=== PATIENT | female | born 1955 | race Caucasian/White ===

== ENCOUNTER 2017-10-12 14:53 | Inpatient (IN) | payer OTHER ==
[2017-10-12 15:16] VITALS: BMI 30.9
[2017-10-12] MEDS ORDERED: ISOVUE-370 76%-LOCM 1 ML ONE (15:47)
[2017-10-12] MEDS ORDERED: Acetaminophen 325 MG TAB PO PRN ×2 (16:10→16:12)
[2017-10-12] MEDS ORDERED: Bisacodyl 5 MG TAB PO PRN (16:12)
[2017-10-12] MEDS ORDERED: Ondansetron HCl/PF 4 MG/2 ML Vial IVP PRN (16:12)
[2017-10-12] MEDS ORDERED: Ondansetron ODT 4 MG TAB PO PRN (16:12)
[2017-10-12] MEDS ORDERED: Calcium Carbonate 500 MG ChewTAB PO PRN (16:12)
[2017-10-12] MEDS ORDERED: Bisacodyl 10 MG SUPP PR PRN (16:12)
[2017-10-12] MEDS ORDERED: Sodium Chloride 0.9% 1,000 ML IV SCH (16:15)
[2017-10-12] MEDS ORDERED: Morphine 4 MG/ML VIAL SLOW IVP PRN (16:30)
[2017-10-12 16:46] LABS: Bilirubin Negative (Negative); Blood, Urine Large (Negative); Glucose, Urine (Dipstick) Negative (Negative); Ketone, Urine Negative (Negative); Nitrite Positive (Negative); Protein, Urine (Dipstick) 100 mg/dL (Neg-Trace)
[2017-10-12 16:47] LABS: Bacteria/HPF 4+ HPF (None Seen); Hyaline Casts/LPF 0-3 HYALINE CAST LPF (0-3 Hyaline); Squamous Epithelial 0-3 HPF (0-3)
[2017-10-12] MEDS: Lactated Ringer's 1,000 ML IV SCH ×2 (16:49→23:47)
[2017-10-12 16:53] LABS: Hematocrit 44.6 % (36.0-47.0); Mean Platelet Volume 8.1 fL (7.4-10.4); Red Blood Cell (RBC) Count 4.71 mill/uL (4.20-5.40); White Blood Cell (WBC) Count 14.2 thou/uL (4.8-10.8)
[2017-10-12 17:07] LABS: Yeast-All Forms None Seen HPF (None Seen)
[2017-10-12 17:09] LABS: ALT (SGPT) 25 U/L (8-55); AST (SGOT) 18 U/L (5-34); Alkaline Phosphatase 72 U/L (40-150); Anion Gap 11 mmol/L (10-20); BUN (Urea Nitrogen) 11 mg/dL (9.8-20.1); Bilirubin, Total 0.5 mg/dL (0.2-1.2); Calc. Creatinine Clearance 103 mL/min (70-130); Calcium 9.4 mg/dL (7.8-10.44); Carbon Dioxide 26 mmol/L (22-29); Chloride 105 mmol/L (98-107); Estimated GFR-MDRD 79
[2017-10-12 17:22] LABS: Neutrophil 85 % (42-75)
[2017-10-12] MEDS ORDERED: Ibuprofen 600 MG TAB PO PRN (19:19)
[2017-10-12] MEDS: Lisinopril 5 MG TAB PO SCH (20:12)
[2017-10-12] MEDS: Multivit, Therapeutic 1 TAB PO SCH (20:12)
[2017-10-12] MEDS: Saccharomyces boulardii 250 MG CAP PO SCH (20:12)
[2017-10-12] MEDS: Atorvastatin Calcium 10 MG TAB PO SCH ×2 (20:12→20:14)
[2017-10-12] MEDS: Famotidine 20 MG TAB PO SCH (20:12)
[2017-10-12] MEDS: Nitrofurantoin Monohyd/M-Cryst 100 MG CAP PO SCH (20:23)
--- NOTE | 2017-10-12 20:31 | CT ---
CT ABDOMEN AND PELVIS WITH IV CONTRAST: History: Bilateral flank pain. FINDINGS: The lung bases are clear. The gallbladder is surgically absent. There is subtle stranding in the ret roperitoneal fat surrounding the renal collecting systems and upper ureters with subtle circumferent ial wall thickening. Urinary bladder is incompletely distended and is also surrounded by subtle infl ammatory fat stranding. No free fluid or free air are apparent. There are degenerative changes of th e lumbar spine. IMPRESSION: Subtle inflamed appearance of the ureters and urinary bladder without evidence of obstruction. Clini carissa correlation regarding other signs and symptoms of chronic urinary tract infection is required. POS: DERRELL
[2017-10-12] MEDS ORDERED: FLU VACC QS2017-18 36 mo. & older 0.5 ML SYRINGE IM ONE (21:00)
--- NOTE | 2017-10-12 21:50 | HP-2 ---
ATTENDING PHYSICIAN: Dr. Gabi Mccarty. RESIDENT: Dr. Chuck Gil, PGY-1. CODE STATUS: Full. HISTORIAN: The patient. SPECIALISTS: For GI, sees Dr. Grimaldo and has seen Dr. Soni with ID. CHIEF COMPLAINT: Bladder pain/diarrhea. HISTORY OF PRESENT ILLNESS: This is a 61-year-old female who was transferred to the hospital from [facility] from Dr. Grimaldo with intractable diarrhea. She also reports having bladder pain since at, pain with urination, although says it feels like her bladder is going to fall out when she pees. She denies any blood in her urine, but also reports starting Thursday that it felt like her kid neys began to hurt so bad. She has been having back pain that has been constant since Thursday and has spikes of pain that go up till 10. The constant pain she rates around 3-4. Right now, her pain is at 6. She reports having nausea with the pain. No fevers, no chills. She reported taking Lety on Thursday and continued to take, but reports that this has not helped at all. History was review ed with this patient, she has been getting treated for C. diff since November. C. diff was brought o n by being treated for a bout of diverticulitis. She recently finished a bout of Dificid on Thursday. She said this did not help with the overall leg pain and abdominal pain with her diarrhea, but did help a little bit with the diarrhea. 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 She said that helped the diarrhea for about 10 days after, but since has come back. She said usually w ith her diarrhea, she says the vancomycin usually helped for the pain. For about 10 days after fini shing treatment with diarrhea, she reports having 4-5 loose stools. The last few days, reports havi ng bright red blood in the toilet paper and in the toilet. She denies a little bit of decreased coleman etite with the diarrhea and abdominal pain. She recently went to see Dr. Dillan LEACH today who sent he r over to us. REVIEW OF SYSTEMS: All review of systems unless noted in the HPI are otherwise negative at this aurea e. PAST MEDICAL HISTORY: GERD, hypertension, hypercholesterolemia, ovarian cyst, desmoid tumor behind the right breast. PAST SURGICAL HISTORY: A colonoscopy that showed diverticula, cholecystectomy in 2012, tubal ligati on, , breast surgery for the desmoid tumor in 2009. She has had ovarian cystectomy bilater ally and hysterectomy. ALLERGIES: No known drug allergies. MEDICATIONS: She takes lisinopril 5 mg and simvastatin 20 mg. FAMILY HISTORY: Mom and dad have hypertension. SOCIAL HISTORY: She is currently nonsmoker, but smoked 20 years ago socially. Alcohol use is occas ional and no illicit drug use. PHYSICAL EXAMINATION: VITAL SIGNS: Blood pressure is 129/80, pulse is 69, respiration is 18, temperature is 98.1, pulse o x 96% on room air and current weight is 179 pounds. GENERAL: She is alert and oriented x3. Well-developed, obese and appropriately interactive. EYES: Conjunctivae within normal limit. PERRLA. ENT: Oropharynx within normal limit. Moist mucous membranes. NECK: Supple. No lymphadenopathy, no thyromegaly, no bruits. CARDIOVASCULAR: Regular rate and rhythm. No murmurs, no gallops. Radial pulses and pedal pulses p alpated bilaterally. RESPIRATORY: Normal breathing, however, there were no retractions. Lungs are clear to auscultation bilaterally. No wheezes or crackles. SKIN: Warm and dry. No lesions. No bruises, no rashes noted. ABDOMEN: Soft. There is severe pain to palpation in the right lower and left lower quadrants and a lso in the pelvic area. There are no masses or distention. Bowel sounds are in all four quadrants. There is severe CVA tenderness on the left side. No CVA tenderness on the right side. MUSCULOSKELETAL: Structure within normal limits. Tone within normal limits. Full range of motion. NEUROLOGIC: No focal neuro deficits. PSYCHIATRIC: Appropriate. LABORATORY AND IMAGING DATA: No labs were done currently at this time. No imaging done yet. ASSESSMENT AND PLAN: 1. Dysuria with cerebrovascular accident tenderness suspected infection. We will get a UA with the urine culture. We will get blood cultures as well to check for infection. We will get a CT abdome n and pelvis as she has severe cerebrovascular accident tenderness looking for possible kidney stone and look for hydronephrosis of the kidneys and also to assess any structure abnormalities in the pe lvis as she was having severe pelvic pain. We will check a CBC and CMP. We will possibly depend on what the urine culture, start on antibiotics and maybe consider consulting ID as the antibiotics henrietta chen was on for diverticulitis caused her Clostridium difficile, so she is a little bit scared about an tibiotic treatment. 2. Intractable diarrhea with a history of Clostridium difficile. We will get stool cultures. We w ill get Campylobacter studies. We will get Clostridium difficile toxin. We will get checked for Es cherichia coli with history of diarrhea and likely electrolyte loss, was started on lactated Ringer' s at a rate of 125 for fluid loss. We will give Zofran for nausea. We will consult GI as she was s ent from the GI office. Dr. Babb will be consulted. We will currently wait on some of her labs in such to get back, but likely will start her on oral vancomycin and IV Flagyl as she does not tolera te p.o. Flagyl. We will put her on a clear liquid diet as I was sent over on orders from the GI doc tors and we will continue the diet until we get recommendations from GI. 3. Hypertension. We will start home meds. 4. Hyperlipidemia. Continue home medications.
--- NOTE | 2017-10-12 22:04 | HP ---
DATE OF ADMISSION: 10/12/2017 ATTENDING: Gabi Mccarty D.O. RESIDENT: Chuck Gil M.D. Dr. Gil's history and physical reviewed and case discussed. Pertinent portions of the history and physical were repeated by myself. I agree with the assessment and plan with the following addendum: Ms. Escobar is a pleasant 61-year-old female with the past medical history of diverticulitis and recurrent C. diff who was admitted to our service on request of Dr. Grimaldo with Gastroenterology for concerns for recurrent C. diff. She complains of worsening diarrhea and abdominal pain as well as blood in her stools in the past 2 to 3 days. She has a several month history of C. diff that began after prior treatment for diverticulitis that has unfortunately been recurrent despite multiple treatments including a fecal transplant. Today she presents with diffuse abdominal pain and bright red blood in stools which are loose and foul smelling. She is afebrile and vital signs are stable. We will do a CT scan of abdomen and pelvis with and without contrast to evaluate for complications including toxic megacolon. She also complains of severe bladder pain. We will check an UA and urine culture to evaluate for a possible urinary tract infection contributing to her symptoms. She is status post total hysterectomy, so this excludes gynecologic issues from a differential. On exam , she is diffusely tender, significantly more so in bilateral lower quadrants. We will obtain C. diff studies as well as other stool studies, CT scan as mentioned above, and GI consultation. Dr. Babb is aware. [facility]ITALAdam
--- NOTE | 2017-10-13 00:07 | CON ---
DATE OF CONSULTATION: 10/12/2017 CHIEF COMPLAINT: Abdominal pain. HISTORY OF PRESENT ILLNESS: Ms. Escobar is a 61-year-old woman who has been treated by Dr. Grimaldo for r ecurrent C. diff colitis. She was first diagnosed with C. diff around a year ago and was treated wi metronidazole in an outside facility. She subsequently had relapses and was treated with vancomy monica for more times. Ultimately, she underwent colonoscopy with fecal transplant by Dr. Grimaldo in 2016. She did well for the next several weeks, but then had relapse of diarrhea. She was travellin and took vancomycin which she had leftover intermittently while she was traveling, but did not andres e a full course of the medication. She came in to see Dr. Grimaldo with worsening bloody diarrhea up t o 5 or 6 times per day. She was then started on Dificid. Since starting Dificid her diarrhea and b leeding have pretty much resolved; however, over the last several days she has had progressive worse mary of lower abdominal pain and lower back pain. The pain is now her primary symptom as the diarrh ea actually improved with the Dificid. She has not had nausea or vomiting. She does feel some bloa ting or distention in the lower abdomen. When she came to the office today to see Dr. Grimaldo for fol lowup, she was feeling poorly and very weak with increased abdominal pain. She has had formed small stools, but due to her weakness and worsening pain, she was admitted for further care. Her abdomin al pain is continuous. PAST MEDICAL HISTORY: Hypertension, hyperlipidemia, recurrent Clostridium difficile infection. PAST SURGICAL HISTORY: Cholecystectomy, tubal ligation, , breast surgery, hysterectomy, cy st removed from the ovary, colonoscopy with fecal transplant. FAMILY HISTORY: Negative for GI malignancy. SOCIAL HISTORY: Occasional alcohol, no drugs. No smoking. ALLERGIES: No known drug allergies. MEDICATIONS: Prior to admission VSL #3, Levsin, lisinopril, Estratest. She recently finished a cou rse of Dificid. REVIEW OF SYSTEMS: Negative x10 systems reviewed except as stated in the history of present illness . PHYSICAL EXAMINATION: VITAL SIGNS: Temperature 98.1, pulse 69, blood pressure 138/85. GENERAL: She is in no acute distress. She is alert and oriented x3. HEENT: Eyes have no scleral icterus. Oropharynx is clear, without lesions. NECK: No cervical or supraclavicular lymphadenopathy. LUNGS: Clear to auscultation bilaterally. HEART: Regular rate and rhythm without murmur. ABDOMEN: Soft without guarding, but she does have some tenderness in the lower abdomen. She is non distended, bowel sounds are active. EXTREMITIES: No lower extremity edema. LABORATORY DATA: White blood cell count 14.2, hemoglobin 14.6, platelets 266, creatinine 0.75, bili scott 0.5, AST 18, ALT 25, alkaline phosphatase 72, albumin 4.0, leukocyte esterase in the urinalysi s is large, nitrite positive, urine white blood cells greater than 50, urine red blood cells 7 to 10 . IMPRESSION: 1. Urinary tract infection. She has lower abdominal pain and lower back pain associated with this. CT scan shows some inflammatory changes around the ureters and thickening of the urinary bladder. 2. Recurrent Clostridium difficile colitis. She unfortunately had a relapse of Clostridium diffici le confirmed by stool studies treated a couple of weeks ago with Dificid. She completed this treatm ent 3 days ago. Her GI symptoms have improved; however, her abdominal pain is her primary symptom n ow. It appears that her current pain symptoms are more likely due to the urinary tract infection ra ther than ongoing recurrent Clostridium difficile now. Her stool quality is improved. Unfortunatel y, there is a high likelihood that her Clostridium difficile will flare again now that she will requ linsey antibiotics for the urinary tract infection. RECOMMENDATIONS: 1. Continue oral probiotics. 2. Start IV antibiotics for the urinary tract infection per primary service. 3. Check stool C. diff now. If the toxin is negative, then I would hold off treatment for the C. d iff and she starts developing diarrhea again. I would have a low threshold for restarting a course of Dificid or vancomycin. 4. Repeat fecal transplant is being considered.
[2017-10-13] MEDS: Simethicone Chewable 80 MG TAB PO PRN ×2 (00:51→16:30)
[2017-10-13 05:02] LABS: Band 6 % (5-11); Hematocrit 41.9 % (36.0-47.0); Mean Platelet Volume 8.4 fL (7.4-10.4); Neutrophil 76 % (42-75); Red Blood Cell (RBC) Count 4.46 mill/uL (4.20-5.40); White Blood Cell (WBC) Count 14.5 thou/uL (4.8-10.8)
[2017-10-13 05:13] LABS: ALT (SGPT) 24 U/L (8-55); AST (SGOT) 18 U/L (5-34); Alkaline Phosphatase 65 U/L (40-150); Anion Gap 12 mmol/L (10-20); BUN (Urea Nitrogen) 8 mg/dL (9.8-20.1); Bilirubin, Total 0.7 mg/dL (0.2-1.2); Calc. Creatinine Clearance 115 mL/min (70-130); Calcium 8.9 mg/dL (7.8-10.44); Carbon Dioxide 24 mmol/L (22-29); Chloride 107 mmol/L (98-107); Estimated GFR-MDRD 90; Globulin 2.7 g/dL (2.4-3.5); Protein, Total 6.2 g/dL (6.0-8.3)
[2017-10-13] MEDS: Lactated Ringer's 1,000 ML IV SCH ×2 (08:33→15:21)
[2017-10-13] MEDS: Famotidine 20 MG TAB PO SCH ×2 (08:33→21:31)
[2017-10-13] MEDS: Saccharomyces boulardii 250 MG CAP PO SCH ×2 (08:34→21:31)
[2017-10-13] MEDS: Nitrofurantoin Monohyd/M-Cryst 100 MG CAP PO SCH (08:35)
[2017-10-13] MEDS: Floranex Packet PO SCH (08:45)
[2017-10-13] MEDS ORDERED: traMADol HCl 50 MG TAB PO PRN (08:53)
--- NOTE | 2017-10-13 08:56 | PDOC.FM ---
- Subjective Subjective: Pt denies any fevers or chills overnight. Pt reports pain a little better but still severe. still reports having back pain. Says urinary sx's have improved. She did not take the morphine last night because after talking with Dr. Babb they decided not to take any medication that might affect the motility of the bowels. She took some tylenol but did not help much with pain. Just observing pt she was upright in chair and with movement would tense up in the abdomen area. - Objective Vital Signs & Weight: Vital Signs (12 hours) Temp Pulse Resp BP Pulse Ox 10/13/17 07:27 98.2 F 82 22 H 123/78 96 10/13/17 04:00 98.1 F 79 20 113/71 98 10/12/17 23:58 98.3 F 74 18 117/69 96 Weight Weight 81.647 kg I&O: 10/12/17 10/13/17 10/14/17 06:59 06:59 06:59 Intake Total 2250 Output Total 50 Balance 2200 Result Diagrams: 10/13/17 04:10 10/13/17 04:10 Additional Labs: Laboratory Tests 10/12/17 16:05 Urine Nitrite Positive H Ur Leukocyte Esterase Large H Urine RBC 7-10 H Urine WBC Greater Than 50-TNTC H Ur Squamous Epith Cells 0-3 Urine Bacteria 4+ H Radiology Reviewed by me: Yes Radiology: CT Ab/Pelvis: subtle inflamed appearance of uterus and urinary bladder w/o evidence of obstruction. <Chuck Gil - Last Filed: 10/13/17 08:54> - Objective Vital Signs & Weight: Vital Signs (12 hours) Temp Pulse Resp BP Pulse Ox 10/13/17 07:27 98.2 F 82 22 H 123/78 96 10/13/17 04:00 98.1 F 79 20 113/71 98 10/12/17 23:58 98.3 F 74 18 117/69 96 Weight Weight 81.647 kg I&O: 10/12/17 10/13/17 10/14/17 06:59 06:59 06:59 Intake Total 2250 Output Total 50 Balance 2200 Result Diagrams: 10/13/17 04:10 10/13/17 04:10 <Saul Toscano - Last Filed: 10/13/17 11:50> Phys Exam - Physical Examination HEENT: moist MMs, oral pharynx no lesions Neck: no nodes, no JVD, supple Respiratory: no wheezing, no rales, no rhonchi, clear to auscultation bilateral Cardiovascular: RRR, no significant murmur, no rub Gastrointestinal: soft, no distention, positive bowel sounds Severe tenderness to palpation in Lower Quadrants Pelvic pain on palpation. Still has Left sided CVA tenderness Neurological: non-focal, normal sensation Lymphatic: no nodes Psychiatric: normal affect, A&O x 3 Skin: no rash, normal turgor <Chuck Gil - Last Filed: 10/13/17 08:54> Dx/Plan (1) Cystitis Code(s): N30.90 - CYSTITIS, UNSPECIFIED WITHOUT HEMATURIA Status: Acute Plan: vs suspected pyelonephritis. -No fevers -WBC count elevated. U/A shows sign of UTI. Urine Cx- E. coli, awaiting sensitivities -Currently on Nitrofurantonin. -Will await sensitivities. -Will need stronger IV abx. Will want to make sure risk for c. diff is low. (2) Hx of Clostridium difficile infection Code(s): Z86.19 - PERSONAL HISTORY OF OTHER INFECTIOUS AND PARASITIC DISEASES Status: Acute Plan: -still awaiting stool collection for stool cultures -Reported having some diarrhea. No loose stools overnight. -Will await results and tx as needed Dr. Babb- GI consulted. Will follow recommendations at this time. (3) HTN (hypertension) Code(s): I10 - ESSENTIAL (PRIMARY) HYPERTENSION Status: Acute Plan: continue home meds (4) HLD (hyperlipidemia) Code(s): E78.5 - HYPERLIPIDEMIA, UNSPECIFIED Status: Acute Plan: continue home meds (5) GERD (gastroesophageal reflux disease) Code(s): K21.9 - GASTRO-ESOPHAGEAL REFLUX DISEASE WITHOUT ESOPHAGITIS Status: Acute Plan: Tums PRN -Give famotidine for ppx <Chuck Gil - Last Filed: 10/13/17 08:54> Attending Addendum - Attending Addendum I personally evaluated the patient and discussed the management with Dr. Gil. I agree with the History, Examination, Assessment and Plan documented above with any addition or exceptions noted below. Patient admitted yesterday with concern for recurrence of CDiff infection. However, at current time, it seems her pain complaints may be more related to cystitis with hematuria with possible ascending infection. No systemic signs of pyelonephritis. We are changing her to IV abx that will be better suited for her UTI while minimizing risk for recurrence of Cdiff. We will start Gentamicin today. Awaiting stool studies to ensure no recurrence. GI on board and appreciate their assistance with her longstanding Cdiff infection. Witholding Vanc/Flagyl until we know if she has an active recurrence of Cdiff. Hopefully, Gent will not flare her infection. <Saul Toscano R - Last Filed: 10/13/17 11:50>
[2017-10-13] MEDS ORDERED: Lisinopril 10 MG TAB PO SCH (09:00)
[2017-10-13] MEDS: traMADol HCl 50 MG TAB PO PRN (09:13)
[2017-10-13] MEDS ORDERED: Ketorolac Tromethamine 30 MG/ML VIAL IVP PRN (10:07)
[2017-10-13] MEDS ORDERED: Gentamicin 80 MG/2 ML VIAL IVPB SCH (10:15)
[2017-10-13] MEDS ORDERED: Gentamicin Sulfate 120 MG in Premix Bag 1 BAG IVPB SCH (10:45)
[2017-10-13] MEDS: Phenazopyridine HCl 97.5 MG TABLET PO SCH ×2 (11:38→16:29)
--- NOTE | 2017-10-13 19:04 | PRG ---
DATE OF SERVICE: 10/13/2017 SUBJECTIVE: She still has pressure in the lower abdomen and lower back pain. This is improving tod ay. No diarrhea today. OBJECTIVE: VITAL SIGNS: Temperature is 97.9, pulse 59, and blood pressure 126/77. GENERAL: She is in no acute distress, alert and oriented x3. HEENT: Eyes have no scleral icterus. LUNGS: Clear to auscultation bilaterally. HEART: Regular rate and rhythm. ABDOMEN: Soft, nontender, nondistended. Bowel sounds are present. EXTREMITIES: No lower extremity edema. LABORATORY DATA: White blood cell count is 14.5. C. diff antigen and toxin were negative on 2016 today. Urine culture grew E. coli. IMPRESSION: 1. Urinary tract infection with CT scan showing thickening of the bladder and ureters. She has bee n started on IV antibiotics. 2. Recurrent Clostridium difficile and colitis, status post fecal transplant a few months ago. She does not have recurrent C. diff at this time; however, certainly she is going to be at high risk fo r recurrence after she has been back on antibiotics for her current urinary tract infection. RECOMMENDATIONS: 1. If she starts having diarrhea again, then would empirically treat her with a 14-day course of va ncomycin. 2. Continue probiotics while she is on antibiotics now and thereafter. 3. If she does develop recurrent C. diff then, her son has been tested for the appropriate pathogen s and as a potential donor for fecal transplant if this becomes necessary. 4. I will sign off for now. Please call if GI can be of assistance. Please call if she develops s igns of recurrent Clostridium difficile.
[2017-10-13] MEDS: Multivit, Therapeutic 1 TAB PO SCH (21:31)
[2017-10-13] MEDS: Lisinopril 5 MG TAB PO SCH (21:32)
[2017-10-13] MEDS: Atorvastatin Calcium 10 MG TAB PO SCH (21:32)
[2017-10-14] MEDS: Lactated Ringer's 1,000 ML IV SCH ×2 (02:02→07:43)
[2017-10-14 07:16] LABS: #Eosinphils 0.1 thou/uL (0.0-0.7); #Lymphocytes 1.3 thou/uL (1.20-3.40); #Monocytes 0.6 thou/uL (0.11-0.59); %Basophils 0.7 % (0.0-1.0); %Eosinophils 1.8 % (0.0-10.0); %Lymphocytes 18.1 % (21.0-51.0); %Monocytes 8.9 % (0.0-10.0); Hematocrit 41.2 % (36.0-47.0); Mean Platelet Volume 8.2 fL (7.4-10.4); Red Blood Cell (RBC) Count 4.37 mill/uL (4.20-5.40); White Blood Cell (WBC) Count 7.1 thou/uL (4.8-10.8)
[2017-10-14] MEDS: Famotidine 20 MG TAB PO SCH (07:44)
[2017-10-14] MEDS: Saccharomyces boulardii 250 MG CAP PO SCH (07:44)
[2017-10-14] MEDS: Floranex Packet PO SCH (07:45)
[2017-10-14] MEDS: Phenazopyridine HCl 97.5 MG TABLET PO SCH (07:45)
[2017-10-14] MEDS: traMADol HCl 50 MG TAB PO PRN (07:49)
--- NOTE | 2017-10-14 07:50 | PDOC.FM ---
- Subjective Subjective: Pt doing much better this morning. Says pain is much improved. No pain in her back. Still reports pelvic pain. Reports having normal solid stools. Pt says she is ready to go home today. - Objective Vital Signs & Weight: Vital Signs (12 hours) Temp Pulse Resp BP Pulse Ox 10/13/17 21:32 71 158/87 H 10/13/17 20:00 97.8 F 68 20 97 Weight Admit Weight 81.647 kg Weight 81.647 kg I&O: 10/13/17 10/14/17 10/15/17 06:59 06:59 06:59 Intake Total 2250 4100 Output Total 50 Balance 2200 4100 Result Diagrams: 10/14/17 07:00 10/13/17 04:10 Radiology Reviewed by me: Yes (No new imaging to review this morning) <Chuck Gil - Last Filed: 10/14/17 07:48> - Objective Vital Signs & Weight: Vital Signs (12 hours) Temp Pulse Resp BP Pulse Ox 10/14/17 08:45 98.1 F 64 12 135/79 96 Weight Admit Weight 81.647 kg Weight 81.647 kg I&O: 10/13/17 10/14/17 10/15/17 06:59 06:59 06:59 Intake Total 2250 4100 Output Total 50 Balance 2200 4100 Result Diagrams: 10/14/17 07:00 10/13/17 04:10 <Saul Toscano - Last Filed: 10/14/17 15:17> Phys Exam - Physical Examination HEENT: moist MMs, oral pharynx no lesions Neck: no nodes, no JVD, supple, full ROM Respiratory: no wheezing, no rales, no rhonchi, clear to auscultation bilateral Cardiovascular: RRR, no significant murmur, no rub Gastrointestinal: soft, no distention, positive bowel sounds Mildly tender in pelvic area. No CVA tenderness Musculoskeletal: no edema, pulses present Neurological: non-focal Psychiatric: normal affect, A&O x 3 Skin: no rash, normal turgor <Chuck Gil - Last Filed: 10/14/17 07:48> Dx/Plan (1) Cystitis Code(s): N30.90 - CYSTITIS, UNSPECIFIED WITHOUT HEMATURIA Status: Acute Plan: vs suspected pyelonephritis. -No fevers -WBC decreased and normal today. U/A shows sign of UTI. Urine Cx- E. coli, awaiting sensitivities -On IV gentamicin. Awaiting urine cx sensitivities -Will want an Oral Abx that has low risk for C. Diff (2) Hx of Clostridium difficile infection Code(s): Z86.19 - PERSONAL HISTORY OF OTHER INFECTIOUS AND PARASITIC DISEASES Status: Acute Plan: -C. diff negative. E. coli shiga toxin negative. Campylobacter negative -Nice formed stools overnight -No need for tx as needed. Will f/u with GI as needed Dr. Babb- GI consulted. Will follow recommendations at this time. (3) HTN (hypertension) Code(s): I10 - ESSENTIAL (PRIMARY) HYPERTENSION Status: Acute Plan: continue home meds -BP a little elevated, likely due to pain and infection. Will need to f/u outpt and may need BP meds dose increased (4) HLD (hyperlipidemia) Code(s): E78.5 - HYPERLIPIDEMIA, UNSPECIFIED Status: Acute Plan: continue home meds (5) GERD (gastroesophageal reflux disease) Code(s): K21.9 - GASTRO-ESOPHAGEAL REFLUX DISEASE WITHOUT ESOPHAGITIS Status: Acute Plan: Tums PRN -Give famotidine for ppx <Chuck Gil - Last Filed: 10/14/17 07:48> Attending Addendum - Attending Addendum I personally evaluated the patient and discussed the management with Dr. Gil. I agree with the History, Examination, Assessment and Plan documented above with any addition or exceptions noted below. Patient improved today since switching ABX to Gentamicin for E. coli UTI. Her pain is improved and she has been afebrile. No diarrhea. She is stable for discharge home today on Macrobid, and will call if culture necessitates a change in antibiotic. Continue probiotics and will need follow up with GI if she has recurrence of diarrhea. Stool cx negative for active Cdiff infection. Azo as needed for bladder pain after d/c. <Saul Toscano - Last Filed: 10/14/17 15:17>
[2017-10-14] MEDS ORDERED: Gentamicin 80 MG/2 ML VIAL IVPB SCH ×2 (08:00→09:00)
[2017-10-14 08:45] VITALS: BP 135/79; TEMP 98.1
[2017-10-14] MEDS ORDERED: Gentamicin Sulfate 120 MG in Premix Bag 1 BAG IVPB SCH (09:00)
--- NOTE | 2017-10-15 20:42 | DIS-2 ---
DATE OF ADMISSION: 10/12/2017 DATE OF DISCHARGE: 10/14/2017 ADMITTING ATTENDING: Gabi Mccarty D.O. DISCHARGE ATTENDING: Saul Toscano MD RESIDENT: Chuck Gil MD, PGY-1. CONSULTATIONS: Dr. Babb with GI. PROCEDURES: None. IMAGING: She did get an abdomen and pelvis CT which showed inflamed appearance of the uterus and urinary bladder without evidence of obstruction. Clinical correlation regarding other signs and symptoms of chronic urinary tract infection is required. PRIMARY DIAGNOSES: 1. Cystitis. 2. History of Clostridium difficile infection. SECONDARY DIAGNOSES: Hypertension, hyperlipidemia and gastroesophageal reflux disease. DISCHARGE MEDICATIONS: Estrogen 1 tab p.o. at bedtime, glucosamine chondroitin complex 1 tablet p.o. at bedtime, lisinopril 5 mg p.o. at bedtime, multivitamin 1 tab p.o. at bedtime, simvastatin 20 mg p.o. q.p.m., and Macrobid 100 mg b.i.d. and tramadol 50 mg q.6 hours p.r.n. for pain. DISCONTINUED MEDICATIONS: No discontinue meds. HISTORY OF PRESENT ILLNESS AND BRIEF HOSPITAL COURSE: This is a 61-year-old female who was transferred from the GI clinic from Dr. Grimaldo's office for intractable diarrhea. She stated that she was having bladder pain since Thursday, pain with urination, burning when she pees and felt like her bladder was going to fall out. She said she had been taking Azo since Thursday and not helped much at all. 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 She had recently finished a course of Dificid on Thursday before the admission. She said she did not have any diarrhea, but was having pain a week before in her abdomen area. Soon after finishing Dificid, Thursday and Thursday she had 4-5 episodes of loose stools and she did notice a little bright red blood in her toilet paper when wiping over the weekend. At this time, we admitted her to work her up for maybe suspected C. diff infection and then also this time look for possible urinary tract infection or kidney stone. At this time, we got the CT scan which is read above. When she came in she had severe pelvic pain to palpation. She had CVA tenderness noted on the left side as well. We got a urine culture which was nitrite positive, leukocyte esterases were large, white blood cells were 50 to too numerous to count and urine bacteria was 4+. The UA, urine culture did end up growing out E. coli. So at this time, we also got stool studies to check for C. diff and all stool cultures , Campylobacter, Shiga toxin and E. coli came back negative for C. diff, viral antigen and toxin came back negative. Due to a little bit of blood in her stool , we also got a stool occult blood which was negative during this visit. So mainly after all the stool cultures came back, it looked like more of a UTI picture and we wanted to start her on antibiotics that would have a low risk of recurrent C. diff infection. She was started on nitrofurantoin oral the first night, her white blood cell count on admission was 14.2, it went up to 14.5 the next day, so we needed to determine a little bit stronger IV, so we started her on IV gentamicin, gave her a dose on the 14th, her white blood cell count returned to 7.1 on the 15th. At this time, she is feeling much better, pain was being better controlled and so we decided to give her one more dose of gentamicin IV and then send her home on Macrobid. Also during this visit, Dr. Graham Babb was consulted. It was suspected C. diff infection. He started her on oral probiotics. He recommended IV antibiotics for urine infection. As the C. diff was negative he said he would hold off on vancomycin or Dificid, but he did say if she ever did get diarrhea to start her on Dificid or vancomycin. During the visit after getting her started on IV gentamicin, she said she had normal bowel movements, two bowel movements, never had loose stools and everything was doing better, so she was discharged home. DISPOSITION: Stable. LOCATION: Home. ACTIVITY: As tolerated. DIET: Regular diet. FOLLOWUP: Will follow up with her primary care physician within 2 weeks for hospital followup, also will follow up with GI as scheduled and will follow up with him sooner if she needs to, if she gets recurrent diarrhea. ALFREDA
== END 2017-10-14 12:41 | disposition home or self-care (01) | DRG 690 ==
LOC: T4-A 14:53
PROVIDERS: ADMIT Student in an Organized Health Care Education/Training Program; ATTEND Student in an Organized Health Care Education/Training Program
DX: N30.01 Acute cystitis with hematuria (principal); I10 Essential (primary) hypertension; K21.9 Gastro-esophageal reflux disease without esophagitis; E86.0 Dehydration; R19.7 Diarrhea, unspecified; Z86.19 Personal history of other infectious and parasitic diseases; B96.20 Unspecified Escherichia coli [E. coli] as the cause of diseases classified elsewhere; E78.00 Pure hypercholesterolemia, unspecified; K57.30 Diverticulosis of large intestine without perforation or abscess without bleeding
CPT/HCPCS: 36415; 74177; 80053; 81001; 82274; 85007; 85025; 85027; 87015; 87040; 87045; 87046; 87077; 87086; 87186; 87206; 87324; 87449; 87899; 90471; 90682; A4216; G0008; J1580; J1885; J2405; Q2036